=== PATIENT | female | born 1955 | race African-American/Black ===

== ENCOUNTER 2021-12-28 12:27 | Inpatient (IN) | payer OTHER ==
[~2021-12-28] VITALS: Ht 177.8 cm; Wt 122.5 kg
[2021-12-28] MEDS ORDERED: LORAZEPAM INJ 2 MG/ML VIAL IV ONE (12:45)
[2021-12-28 12:47] LABS: BASOPHILS % 0.4 % (0.0-1.0); EOSINOPHILS # (AUTO) 0.1 (0.0-0.4); EOSINOPHILS % 1.3 % (0.0-6.0); HEMATOCRIT 41.4 % (34.2-44.1); HEMOGLOBIN 13.5 g/dL (12.0-16.0); LYMPHOCYTES # (AUTO) 3.8 (1.0-3.2); LYMPHOCYTES % 39.3 % (18.0-39.1); MEAN CORPUSCULAR HGB CONC 32.6 g/dL (31-35); MEAN CORPUSCULAR VOLUME 76.5 fL (81-99); MONOCYTES # (AUTO) 0.7 (0.2-0.8); MONOCYTES % 6.7 % (4.4-11.3); NEUTROPHILS % 52.1 % (38.7-80.0); PLATELET COUNT 318 x10e3/uL (140-360); RED BLOOD COUNT 5.41 x10e6/uL (3.6-5.1); RED CELL DISTRIBUTION WIDTH 14.7 % (11.7-14.4)
[2021-12-28 12:59] LABS: INR 0.89; PROTHROMBIN TIME 12.9 seconds (11.9-14.5)
[2021-12-28 13:00] LABS: PARTIAL THROMBOPLASTIN TIME 30.6 seconds (23.8-35.5)
[2021-12-28 13:07] LABS: ALBUMIN 4.3 g/dL (3.5-5.0); ALBUMIN/GLOBULIN RATIO 1.1 (0.8-2.0); ANION GAP 18.1 mmol/L (8-16); CREATININE, SERUM 1.03 mg/dL (0.57-1.11); POTASSIUM 3.1 mmol/L (3.5-5.1)
[2021-12-28] MEDS ORDERED: LORAZEPAM INJ 2 MG/ML VIAL ONE (13:07)
[2021-12-28 13:14] LABS: CREATINE KINASE MB 0.6 ng/mL (0-5.0)
[2021-12-28 13:28] LABS: FREE T4 (FREE THYROXINE) 1.1 ng/dL (0.8-1.8); THYROID STIMULATING HORMONE 1.579 uIU/mL (0.350-4.940)
[2021-12-28 15:48] VITALS: BP 119/80
[2021-12-28 15:51] VITALS: BP 119/80
[2021-12-28 16:20] VITALS: BP 116/72
[2021-12-28] MEDS ORDERED: LEVOTHYROXINE50 MCG PO (16:32)
[2021-12-28] MEDS ORDERED: ASPIRIN81 MG PO (16:32)
[2021-12-28] MEDS ORDERED: LEXAPRO5 MG PO (16:32)
[2021-12-28] MEDS ORDERED: METOPROLOL TART50 MG PO (16:32)
[2021-12-28] MEDS ORDERED: HYDRALAZINE HCL50 MG PO (16:32)
[2021-12-28] MEDS ORDERED: AMLODIPINE BESY10 MG PO (16:32)
[2021-12-28] MEDS ORDERED: HYDROCHLOROTH12.5 MG PO (16:32)
[2021-12-28] MEDS ORDERED: METFORMIN HCL500 MG PO (16:32)
[2021-12-28] MEDS ORDERED: NEURONTIN100 MG PO (16:32)
[2021-12-28] MEDS ORDERED: LOSARTAN POTASS25 MG PO (16:32)
[2021-12-28] MEDS ORDERED: ULTRAM50 MG PO (16:32)
[2021-12-28] MEDS ORDERED: SIMVASTATIN20 MG PO (16:32)
[2021-12-28] MEDS: METOPROLOL TARTRATE 50 MG TAB PO SCH (16:41)
[2021-12-28] MEDS ORDERED: METOPROLOL TARTRATE 50 MG TAB PO SCH (17:00)
[2021-12-28] MEDS ORDERED: POTASSIUM CHLORIDE 20 MEQ TAB CR PO ONE (17:10)
[2021-12-28] MEDS: ENOXAPARIN SODIUM INJ 100 MG/ML SYR SC SCH (17:24)
[2021-12-28 19:23] VITALS: BP 116/77
[2021-12-28 22:58] VITALS: BP 116/77
[2021-12-28 23:58] VITALS: BP 123/78
[2021-12-29] VITALS (8 sets, daily range): BP systolic 117–143; BP diastolic 67–79
[2021-12-29] MEDS: ENOXAPARIN SODIUM INJ 100 MG/ML SYR SC SCH (05:09)
[2021-12-29 06:09] LABS: BASOPHILS % 0.6 % (0.0-1.0); EOSINOPHILS # (AUTO) 0.1 (0.0-0.4); EOSINOPHILS % 2.5 % (0.0-6.0); HEMATOCRIT 37.3 % (34.2-44.1); HEMOGLOBIN 12.2 g/dL (12.0-16.0); LYMPHOCYTES # (AUTO) 1.8 (1.0-3.2); LYMPHOCYTES % 34.8 % (18.0-39.1); MEAN CORPUSCULAR HEMOGLOBIN 25.4 pg (28-32); MEAN CORPUSCULAR HGB CONC 32.7 g/dL (31-35); MEAN CORPUSCULAR VOLUME 77.7 fL (81-99); MONOCYTES # (AUTO) 0.4 (0.2-0.8); MONOCYTES % 7.3 % (4.4-11.3); NEUTROPHILS # (AUTO) 2.8 (2.1-6.9); NEUTROPHILS % 54.4 % (38.7-80.0); PLATELET COUNT 265 x10e3/uL (140-360); RED CELL DISTRIBUTION WIDTH 14.7 % (11.7-14.4)
[2021-12-29 06:43] LABS: ALBUMIN 3.5 g/dL (3.5-5.0); ANION GAP 13.3 mmol/L (8-16); CALCIUM 8.4 mg/dL (8.4-10.2); CHOL/HDL RATIO 3.8 (3.0-3.6); CREATININE, SERUM 0.87 mg/dL (0.57-1.11); POTASSIUM 3.3 mmol/L (3.5-5.1)
[2021-12-29 07:05] LABS: CREATINE KINASE MB 0.8 ng/mL (0-5.0)
[2021-12-29] MEDS: METOPROLOL TARTRATE 50 MG TAB PO SCH ×2 (08:36→16:30)
[2021-12-29] MEDS: LOSARTAN POTASSIUM 100 MG TAB PO SCH (08:36)
[2021-12-29] MEDS: AMLODIPINE BESYLATE 5 MG TAB PO SCH (08:36)
[2021-12-29] MEDS ORDERED: TRAMADOL HCL 50 MG TAB PO PRN (08:45)
[2021-12-29] MEDS: LORAZEPAM 0.5 MG TAB PO PRN ×2 (09:05→16:30)
[2021-12-29] MEDS: HYDRALAZINE HCL 25 MG TAB PO SCH ×2 (09:05→16:29)
[2021-12-29] MEDS: ASPIRIN 81 MG CHEW TAB PO SCH (09:05)
[2021-12-29] MEDS ORDERED: POTASSIUM CHLORIDE 20 MEQ TAB CR PO ONE (10:20)
[2021-12-29] MEDS: FLECAINIDE ACETATE 100 MG TAB PO SCH ×2 (10:35→20:54)
[2021-12-29 15:22] LABS: CREATINE KINASE MB 0.7 ng/mL (0-5.0)
[2021-12-29] MEDS ORDERED: METOPROLOL TARTRATE 25 MG TAB PO SCH (17:00)
[2021-12-29] MEDS ORDERED: RIVAROXABAN 20 MG TABLET PO SCH (17:00)
[2021-12-29] MEDS ORDERED: SIMVASTATIN 20 MG TAB PO SCH (21:00)
[2021-12-30 04:00] VITALS: BP 146/88
[2021-12-30 04:57] LABS: HEMATOCRIT 39.8 % (34.2-44.1); MEAN CORPUSCULAR HEMOGLOBIN 25.5 pg (28-32); MEAN CORPUSCULAR HGB CONC 32.7 g/dL (31-35); MEAN CORPUSCULAR VOLUME 78.2 fL (81-99); PLATELET COUNT 294 x10e3/uL (140-360); RED BLOOD COUNT 5.09 x10e6/uL (3.6-5.1); RED CELL DISTRIBUTION WIDTH 14.8 % (11.7-14.4)
[2021-12-30] MEDS: LORAZEPAM 0.5 MG TAB PO PRN (05:03)
[2021-12-30 05:28] LABS: CALCIUM 8.8 mg/dL (8.4-10.2); CREATININE, SERUM 0.92 mg/dL (0.57-1.11)
[2021-12-30] MEDS ORDERED: LEVOTHYROXINE SODIUM 50 MCG TAB PO SCH (06:00)
[2021-12-30 07:19] LABS: EOSINOPHILS % (MANUAL) 4 % (0-7); LYMPHOCYTES % (MANUAL) 49 % (19-48); MONOCYTES % (MANUAL) 2 % (3.4-9.0); NEUTROPHILS % (MANUAL) 45 % (40-74); PLATELET ESTIMATE ADEQUATE; PLATELET MORPHOLOGY COMMENT NORMAL; RBC MORPHOLOGY COMMENT NORMAL
[2021-12-30 07:53] VITALS: BP 105/93
[2021-12-30 08:00] VITALS: BP 105/93
[2021-12-30] MEDS: METOPROLOL TARTRATE 50 MG TAB PO SCH (08:55)
[2021-12-30] MEDS: ASPIRIN 81 MG CHEW TAB PO SCH (08:55)
[2021-12-30] MEDS: LOSARTAN POTASSIUM 100 MG TAB PO SCH (08:56)
[2021-12-30] MEDS: HYDRALAZINE HCL 25 MG TAB PO SCH (08:56)
[2021-12-30] MEDS: FLECAINIDE ACETATE 100 MG TAB PO SCH (08:57)
[2021-12-30] MEDS: AMLODIPINE BESYLATE 5 MG TAB PO SCH (08:57)
[2021-12-30] MEDS ORDERED: FLECAINIDE ACE100 MG PO (11:31)
[2021-12-30] MEDS ORDERED: XARELTO20 MG PO (11:31)
[2021-12-30 11:55] VITALS: BP 123/93
== END 2021-12-30 14:23 | disposition home or self-care (01) | DRG 310 ==
LOC: ER 12:31 → ERHOLD 14:01 → MED/SURG2 15:45
PROVIDERS: ADMIT Internal Medicine; ATTEND Internal Medicine
DX: I48.0 Paroxysmal atrial fibrillation (principal); I10 Essential (primary) hypertension; E66.9 Obesity, unspecified; Z68.38 Body mass index [BMI] 38.0-38.9, adult; E11.9 Type 2 diabetes mellitus without complications; E03.9 Hypothyroidism, unspecified; F41.9 Anxiety disorder, unspecified; E78.5 Hyperlipidemia, unspecified; Z20.822 Contact with and (suspected) exposure to COVID-19; F32.A Depression, unspecified; M79.7 Fibromyalgia; R00.2 Palpitations
CPT/HCPCS: 36415; 71045; 80048; 80053; 80061; 82550; 82553; 82948; 83880; 84439; 84443; 84484; 85007; 85025; 85027; 85610; 85730; 93005; 94799; 99284; J1650; J2060; U0002

== ENCOUNTER 2022-01-08 00:36 | Observation (INO) | payer OTHER ==
[~2022-01-08] VITALS: Ht 170.2 cm; Wt 107.0 kg
[~2022-01-08 00:36] MED LIST: AMLODIPINE BESY10 MG PO; ASPIRIN81 MG PO; FLECAINIDE ACE100 MG PO; HYDRALAZINE HCL50 MG PO; HYDROCHLOROTH12.5 MG PO; LEVOTHYROXINE50 MCG PO; LEXAPRO5 MG PO; LOSARTAN POTASS25 MG PO; METFORMIN HCL500 MG PO; METOPROLOL TART50 MG PO; NEURONTIN100 MG PO; SIMVASTATIN20 MG PO; ULTRAM50 MG PO; XARELTO20 MG PO
[2022-01-08 01:15] LABS: BASOPHILS % 0.3 % (0.0-1.0); EOSINOPHILS # (AUTO) 0.1 (0.0-0.4); EOSINOPHILS % 1.9 % (0.0-6.0); HEMATOCRIT 37.3 % (34.2-44.1); HEMOGLOBIN 12.2 g/dL (12.0-16.0); LYMPHOCYTES # (AUTO) 2.2 (1.0-3.2); LYMPHOCYTES % 32.8 % (18.0-39.1); MEAN CORPUSCULAR HEMOGLOBIN 25.1 pg (28-32); MEAN CORPUSCULAR HGB CONC 32.7 g/dL (31-35); MEAN CORPUSCULAR VOLUME 76.6 fL (81-99); MONOCYTES # (AUTO) 0.5 (0.2-0.8); MONOCYTES % 6.9 % (4.4-11.3); NEUTROPHILS # (AUTO) 3.9 (2.1-6.9); NEUTROPHILS % 57.8 % (38.7-80.0); PLATELET COUNT 331 x10e3/uL (140-360); RED BLOOD COUNT 4.87 x10e6/uL (3.6-5.1); RED CELL DISTRIBUTION WIDTH 14.8 % (11.7-14.4)
[2022-01-08 01:30] LABS: ALBUMIN 3.7 g/dL (3.5-5.0); ALBUMIN/GLOBULIN RATIO 1.1 (0.8-2.0); ANION GAP 15.2 mmol/L (8-16); CALCIUM 8.7 mg/dL (8.4-10.2); CREATININE, SERUM 1.15 mg/dL (0.57-1.11); POTASSIUM 3.2 mmol/L (3.5-5.1)
[2022-01-08] MEDS ORDERED: Morphine 4mg Syringe 4 MG/ML INJ IV PRN (02:30)
[2022-01-08] MEDS ORDERED: ONDANSETRON HCL INJ 2MG/ML 2ML 2 MG/ML VIAL IV PRN (02:30)
[2022-01-08] MEDS ORDERED: ASPIRIN 81 MG CHEW TAB PO ONE (02:30)
[2022-01-08] MEDS ORDERED: ACETAMINOPHEN 325 MG TAB PO ONE (03:15)
[2022-01-08] MEDS ORDERED: LORAZEPAM INJ 2 MG/ML VIAL IV ONE (03:15)
[2022-01-08 04:36] LABS: CREATINE KINASE MB 0.4 ng/mL (0-5.0)
[2022-01-08 08:17] VITALS: BP 122/68
[2022-01-08 10:12] LABS: CREATINE KINASE 55 IU/L (29-168)
[2022-01-08] MEDS ORDERED: POTASSIUM CHLORIDE 20 MEQ TAB CR PO ONE ×2 (11:15→14:00)
[2022-01-08] MEDS ORDERED: METOPROLOL TARTRATE 50 MG TAB PO SCH (11:15)
[2022-01-08 12:00] VITALS: BP 122/75
[2022-01-08] MEDS ORDERED: FLECAINIDE ACETATE 100 MG TAB PO SCH (12:00)
[2022-01-08] MEDS ORDERED: ATIVAN1 MG PO (14:02)
[2022-01-08] MEDS ORDERED: RIVAROXABAN 20 MG TABLET PO SCH (17:00)
[2022-01-08] MEDS ORDERED: SIMVASTATIN 20 MG TAB PO SCH (21:00)
[2022-01-09] MEDS ORDERED: LEVOTHYROXINE SODIUM 50 MCG TAB PO SCH (06:00)
[2022-01-09] MEDS ORDERED: LOSARTAN POTASSIUM 25 MG TAB PO SCH (09:00)
== END 2022-01-08 14:37 | disposition home or self-care (01) ==
LOC: ER 00:43 → ERHOLD 02:51 → MED/SURG 06:39
PROVIDERS: ADMIT Internal Medicine; ATTEND Internal Medicine
DX: I48.91 Unspecified atrial fibrillation (principal); I10 Essential (primary) hypertension; I48.92 Unspecified atrial flutter; R00.2 Palpitations; E11.9 Type 2 diabetes mellitus without complications; E03.9 Hypothyroidism, unspecified; F41.9 Anxiety disorder, unspecified; E78.5 Hyperlipidemia, unspecified; Z79.82 Long term (current) use of aspirin; Z79.84 Long term (current) use of oral hypoglycemic drugs; Z20.822 Contact with and (suspected) exposure to COVID-19
CPT/HCPCS: 36415; 70450; 71045; 80053; 82550; 82553; 82948; 83880; 84484; 85025; 93005; 94799; 99284; G0378; J2060; J2270; J2405; U0002